=== PATIENT | female | born 1950 | race African-American/Black ===

== ENCOUNTER 2021-09-28 12:26 | Inpatient (IN) | payer OTHER ==
[2021-09-28] MEDS ORDERED: IBUPROFEN 600 MG TABLET (FP) PO ONE ×2 (13:46→13:47)
[2021-09-28 16:05] LABS: BASO % 0.6 % (0-2.0); EOS % 0.2 % (0-4.5); HEMATOCRIT 38.5 % (32.4-45.2); HEMOGLOBIN 12.3 GM/dL (10.7-15.3); LYMPH % 18.7 % (8-40); MCH 28.8 pg (25.7-33.7); MCHC 32.1 g/dl (32.0-36.0); MEAN CELL VOLUME 89.7 fl (80-96); MEAN PLT VOLUME 8.7 fl (7.5-11.1); MONO % 9.5 % (3.8-10.2); PLATELET COUNT 189 10^3/uL (134-434); RBC 4.29 M/mm3 (3.60-5.2); RDW 16.3 % (11.6-15.6); WHITE BLOOD COUNT 6.8 K/mm3 (4.0-10.0)
[2021-09-28 16:08] LABS: INR 1.32 (0.83-1.09); PROTHROMBIN TIME (PATIENT) 15.2 SEC (9.7-13.0)
[2021-09-28 16:10] LABS: ACTIVATED PTT 24.4 SECONDS (25.2-36.5)
[2021-09-28 16:14] LABS: CALCIUM 8.7 mg/dL (8.5-10.1)
[2021-09-28 16:15] LABS: ALBUMIN 3.3 g/dl (3.4-5.0); MAGNESIUM 1.7 mg/dL (1.8-2.4)
[2021-09-28 16:18] LABS: CREATININE 1.3 mg/dL (0.55-1.3)
[2021-09-28 16:20] LABS: BILIRUBIN,TOTAL 1.7 mg/dL (0.2-1); TOT PROT 7.2 g/dl (6.4-8.2)
[2021-09-28 16:38] LABS: EPI CELLS >36 /uL (0-25.1); HYALINE CASTS 3 /uL (0-3.1); PH,URINE 5.5 (5.0-8.0); URINE APPEARANCE CLOUDY; URINE BACTERIA 493 /uL (0-1359); URINE BILIRUBIN NEGATIVE (NEGATIVE); URINE COLOR DK YELLOW; URINE GLUCOSE (UA) NEGATIVE (NEGATIVE); URINE KETONE NEGATIVE (NEGATIVE); URINE LEUK ESTERASE NEGATIVE (NEGATIVE); URINE NITRITE NEGATIVE (NEGATIVE); URINE PROTEIN 3+ (NEGATIVE); URINE WBC 13 /uL (0-25.8)
[2021-09-28 18:05] LABS: URINE RBC 25.5 /uL (0-23.9)
[2021-09-28] MEDS ORDERED: FUROSEMIDE 40 MG/4 ML INJECTABLE VIAL IVPUSH ONE (20:22)
[2021-09-28] MEDS ORDERED: POTASSIUM CHLORIDE TABS 20 MEQ TABLET.ER (FP) PO ONE ×2 (21:02→21:44)
[2021-09-28] MEDS ORDERED: MAGNESIUM OXIDE 400 MG TABLET (FP) PO ONE (21:03)
[2021-09-28] MEDS ORDERED: NALOXONE HCL 0.4 MG/ML VIAL IVPUSH PRN (21:23)
[2021-09-28] MEDS ORDERED: MAGNESIUM OXIDE 400 MG TABLET (FP) ONE (21:45)
[2021-09-28] MEDS ORDERED: FUROSEMIDE 40 MG/4 ML INJECTABLE VIAL ONE (21:45)
[2021-09-28] MEDS ORDERED: ACETAMINOPHEN 500 MG TABLET (FP) ONE (21:47)
[2021-09-28] MEDS: ACETAMINOPHEN 500 MG TABLET (FP) PO PRN (21:57)
[2021-09-29 07:14] LABS: HEMATOCRIT 35.7 % (32.4-45.2); HEMOGLOBIN 11.4 GM/dL (10.7-15.3); MCH 28.5 pg (25.7-33.7); MCHC 31.9 g/dl (32.0-36.0); MEAN CELL VOLUME 89.4 fl (80-96); MEAN PLT VOLUME 9.3 fl (7.5-11.1); PLATELET COUNT 161 10^3/uL (134-434); RDW 16.1 % (11.6-15.6); WHITE BLOOD COUNT 4.3 K/mm3 (4.0-10.0)
[2021-09-29 07:39] LABS: BLOOD UREA NITROGEN 23.2 mg/dL (7-18); CALCIUM 8.2 mg/dL (8.5-10.1)
[2021-09-29 07:40] LABS: ALBUMIN 2.8 g/dl (3.4-5.0); MAGNESIUM 1.6 mg/dL (1.8-2.4)
[2021-09-29 07:41] LABS: CREATININE 1.3 mg/dL (0.55-1.3); PHOSPHOROUS 3.6 mg/dL (2.5-4.9)
[2021-09-29 07:42] LABS: BILIRUBIN,TOTAL 1.3 mg/dL (0.2-1); TOT PROT 6.2 g/dl (6.4-8.2)
[2021-09-29] MEDS ORDERED: MAGNESIUM SULF 50% (8.12 MEQ/2 ML-1 GM VIAL) IVPB ONE (07:43)
[2021-09-29] MEDS ORDERED: MAGNESIUM SULFATE IN WATER 2 GM/50 ML IVPB IVPB ONE (07:49)
[2021-09-29] MEDS: FUROSEMIDE 40 MG/4 ML INJECTABLE VIAL IVPUSH SCH (08:07)
[2021-09-29] MEDS ORDERED: ENOXAPARIN NA (PORCINE) 40 MG/0.4 ML DISP.SYRIN SQ ONE (09:32)
[2021-09-29] MEDS ORDERED: CARVEDILOL 12.5 MG TABLET (FP) ONE (09:32)
[2021-09-29] MEDS: ENOXAPARIN NA (PORCINE) 40 MG/0.4 ML DISP.SYRIN SQ SCH (09:38)
[2021-09-29] MEDS ORDERED: LISINOPRIL 5 MG TABLET PO SCH (10:00)
[2021-09-29] MEDS ORDERED: CARVEDILOL 12.5 MG TABLET (FP) PO SCH (10:00)
[2021-09-29] MEDS ORDERED: MAGNESIUM OXIDE 400 MG TABLET (FP) PO ONE (14:47)
[2021-09-29] MEDS ORDERED: MAGNESIUM OXIDE 400 MG TABLET (FP) ONE (15:45)
[2021-09-29] MEDS: ACETAMINOPHEN 500 MG TABLET (FP) PO PRN (15:49)
[2021-09-29 20:44] VITALS: BMI 32.5
[2021-09-29] MEDS ORDERED: SACUBITRIL/VALSARTAN 24 MG-26 MG TABLET PO SCH (22:00)
[2021-09-29] MEDS: SACUBITRIL/VALSARTAN 49 MG-51 MG TABLET PO SCH (22:08)
[2021-09-29] MEDS: CARVEDILOL 6.25 MG TABLET (FP) PO SCH (22:08)
[2021-09-30] MEDS: ACETAMINOPHEN 500 MG TABLET (FP) PO PRN ×2 (06:24→23:13)
[2021-09-30] MEDS: FUROSEMIDE 40 MG/4 ML INJECTABLE VIAL IVPUSH SCH (06:24)
[2021-09-30 07:05] LABS: HEMATOCRIT 34.1 % (32.4-45.2); MCH 28.7 pg (25.7-33.7); MCHC 32.2 g/dl (32.0-36.0); MEAN CELL VOLUME 89.1 fl (80-96); MEAN PLT VOLUME 9.1 fl (7.5-11.1); PLATELET COUNT 172 10^3/uL (134-434); RBC 3.83 M/mm3 (3.60-5.2); RDW 16.1 % (11.6-15.6); WHITE BLOOD COUNT 4.5 K/mm3 (4.0-10.0)
[2021-09-30 07:24] LABS: CALCIUM 8.3 mg/dL (8.5-10.1)
[2021-09-30 07:25] LABS: ALBUMIN 2.8 g/dl (3.4-5.0); BLOOD UREA NITROGEN 30.5 mg/dL (7-18)
[2021-09-30 07:28] LABS: CREATININE 1.3 mg/dL (0.55-1.3); PHOSPHOROUS 3.2 mg/dL (2.5-4.9)
[2021-09-30 07:30] LABS: TOT PROT 6.5 g/dl (6.4-8.2)
[2021-09-30] MEDS: SACUBITRIL/VALSARTAN 49 MG-51 MG TABLET PO SCH ×2 (09:53→21:24)
[2021-09-30] MEDS: ENOXAPARIN NA (PORCINE) 40 MG/0.4 ML DISP.SYRIN SQ SCH (09:53)
[2021-09-30] MEDS: POTASSIUM CHLORIDE TABS 20 MEQ TABLET.ER (FP) PO SCH (09:53)
[2021-09-30] MEDS: CARVEDILOL 6.25 MG TABLET (FP) PO SCH ×2 (09:53→21:24)
[2021-09-30] MEDS ORDERED: POTASSIUM CHLORIDE TABS 20 MEQ TABLET.ER (FP) PO ONE (15:00)
[2021-10-01] MEDS: FUROSEMIDE 40 MG/4 ML INJECTABLE VIAL IVPUSH SCH (06:10)
[2021-10-01 07:27] LABS: BLOOD UREA NITROGEN 27.9 mg/dL (7-18); CALCIUM 8.2 mg/dL (8.5-10.1)
[2021-10-01 07:28] LABS: MAGNESIUM 1.6 mg/dL (1.8-2.4)
[2021-10-01 07:30] LABS: CREATININE 1.2 mg/dL (0.55-1.3)
[2021-10-01] MEDS ORDERED: MAGNESIUM SULF 50% (8.12 MEQ/2 ML-1 GM VIAL) IVPB ONE (07:58)
[2021-10-01] MEDS: ENOXAPARIN NA (PORCINE) 40 MG/0.4 ML DISP.SYRIN SQ SCH (09:10)
[2021-10-01] MEDS: POTASSIUM CHLORIDE TABS 20 MEQ TABLET.ER (FP) PO SCH (09:10)
[2021-10-01] MEDS: SACUBITRIL/VALSARTAN 49 MG-51 MG TABLET PO SCH ×2 (09:10→22:19)
[2021-10-01] MEDS: CARVEDILOL 6.25 MG TABLET (FP) PO SCH ×2 (09:10→22:19)
[2021-10-01] MEDS: ACETAMINOPHEN 500 MG TABLET (FP) PO PRN (17:41)
[2021-10-02] MEDS: FUROSEMIDE 40 MG/4 ML INJECTABLE VIAL IVPUSH SCH (06:11)
[2021-10-02 07:51] LABS: BASO % 0.3 % (0-2.0); EOS % 1.4 % (0-4.5); HEMATOCRIT 33.9 % (32.4-45.2); HEMOGLOBIN 10.8 GM/dL (10.7-15.3); LYMPH % 42.6 % (8-40); MCH 28.5 pg (25.7-33.7); MCHC 31.8 g/dl (32.0-36.0); MEAN CELL VOLUME 89.4 fl (80-96); MEAN PLT VOLUME 8.9 fl (7.5-11.1); MONO % 15.4 % (3.8-10.2); NEUT % 40.3 % (42.8-82.8); PLATELET COUNT 177 10^3/uL (134-434); RBC 3.79 M/mm3 (3.60-5.2); WHITE BLOOD COUNT 4.8 K/mm3 (4.0-10.0)
[2021-10-02 08:11] LABS: ALBUMIN 2.6 g/dl (3.4-5.0)
[2021-10-02 08:12] LABS: BLOOD UREA NITROGEN 24.7 mg/dL (7-18)
[2021-10-02 08:14] LABS: CALCIUM 7.7 mg/dL (8.5-10.1); MAGNESIUM 1.6 mg/dL (1.8-2.4)
[2021-10-02 08:16] LABS: PHOSPHOROUS 2.6 mg/dL (2.5-4.9)
[2021-10-02 08:17] LABS: CREATININE 1.1 mg/dL (0.55-1.3)
[2021-10-02 08:18] LABS: TOT PROT 5.9 g/dl (6.4-8.2)
[2021-10-02] MEDS: SACUBITRIL/VALSARTAN 49 MG-51 MG TABLET PO SCH ×2 (09:23→22:42)
[2021-10-02] MEDS: POTASSIUM CHLORIDE TABS 20 MEQ TABLET.ER (FP) PO SCH (09:23)
[2021-10-02] MEDS: ENOXAPARIN NA (PORCINE) 40 MG/0.4 ML DISP.SYRIN SQ SCH (09:23)
[2021-10-02] MEDS: CARVEDILOL 6.25 MG TABLET (FP) PO SCH ×2 (09:23→22:37)
[2021-10-02] MEDS: ACETAMINOPHEN 500 MG TABLET (FP) PO PRN ×2 (09:24→22:37)
[2021-10-02] MEDS ORDERED: MAGNESIUM SULF 50% (8.12 MEQ/2 ML-1 GM VIAL) IVPB ONE (10:37)
[2021-10-03] MEDS: FUROSEMIDE 40 MG/4 ML INJECTABLE VIAL IVPUSH SCH (06:22)
[2021-10-03] MEDS: POTASSIUM CHLORIDE TABS 20 MEQ TABLET.ER (FP) PO SCH (09:46)
[2021-10-03] MEDS: CARVEDILOL 6.25 MG TABLET (FP) PO SCH ×2 (09:46→21:47)
[2021-10-03] MEDS: SACUBITRIL/VALSARTAN 49 MG-51 MG TABLET PO SCH ×2 (09:47→21:47)
[2021-10-03] MEDS: ENOXAPARIN NA (PORCINE) 40 MG/0.4 ML DISP.SYRIN SQ SCH (09:47)
[2021-10-03] MEDS: ACETAMINOPHEN 500 MG TABLET (FP) PO PRN ×2 (09:48→21:47)
[2021-10-03] MEDS ORDERED: MAGNESIUM 1GM/D5W 100ML - 100 ML IVPB IVPB ONE (13:45)
[2021-10-03 15:08] LABS: BASO % 0.4 % (0-2.0); EOS % 1.6 % (0-4.5); HEMATOCRIT 34.8 % (32.4-45.2); LYMPH % 36.2 % (8-40); MCH 28.3 pg (25.7-33.7); MCHC 31.7 g/dl (32.0-36.0); MEAN CELL VOLUME 89.5 fl (80-96); MONO % 9.1 % (3.8-10.2); NEUT % 52.7 % (42.8-82.8); PLATELET COUNT 206 10^3/uL (134-434); RBC 3.89 M/mm3 (3.60-5.2); RDW 15.6 % (11.6-15.6); WHITE BLOOD COUNT 5.6 K/mm3 (4.0-10.0)
[2021-10-03 15:26] LABS: INR 1.05 (0.83-1.09); PROTHROMBIN TIME (PATIENT) 12.1 SEC (9.7-13.0)
[2021-10-03 15:28] LABS: ACTIVATED PTT 34.9 SECONDS (25.2-36.5)
[2021-10-03 15:36] LABS: BLOOD UREA NITROGEN 19.6 mg/dL (7-18); CALCIUM 8.8 mg/dL (8.5-10.1); MAGNESIUM 2.3 mg/dL (1.8-2.4)
[2021-10-03 15:39] LABS: CREATININE 1.2 mg/dL (0.55-1.3); PHOSPHOROUS 2.7 mg/dL (2.5-4.9)
[2021-10-03 15:41] LABS: BILIRUBIN,TOTAL 0.9 mg/dL (0.2-1); TOT PROT 6.7 g/dl (6.4-8.2)
[2021-10-04] MEDS: FUROSEMIDE 40 MG/4 ML INJECTABLE VIAL IVPUSH SCH (06:26)
[2021-10-04 07:44] LABS: CALCIUM 8.4 mg/dL (8.5-10.1)
[2021-10-04 07:45] LABS: BLOOD UREA NITROGEN 19.5 mg/dL (7-18); MAGNESIUM 2.2 mg/dL (1.8-2.4)
[2021-10-04] MEDS: POTASSIUM CHLORIDE TABS 20 MEQ TABLET.ER (FP) PO SCH (11:18)
[2021-10-04] MEDS: CARVEDILOL 6.25 MG TABLET (FP) PO SCH ×2 (11:18→21:17)
[2021-10-04] MEDS: ENOXAPARIN NA (PORCINE) 40 MG/0.4 ML DISP.SYRIN SQ SCH (11:19)
[2021-10-04] MEDS: SACUBITRIL/VALSARTAN 49 MG-51 MG TABLET PO SCH ×2 (11:19→21:18)
[2021-10-04] MEDS: ACETAMINOPHEN 500 MG TABLET (FP) PO PRN ×2 (11:24→21:18)
[2021-10-05 06:13] VITALS: PULSE 78
[2021-10-05] MEDS: FUROSEMIDE 40 MG/4 ML INJECTABLE VIAL IVPUSH SCH (06:45)
[2021-10-05 08:01] LABS: BASO % 0.6 % (0-2.0); EOS % 2.2 % (0-4.5); HEMATOCRIT 34.5 % (32.4-45.2); LYMPH % 45.5 % (8-40); MCH 28.6 pg (25.7-33.7); MEAN CELL VOLUME 89.4 fl (80-96); MEAN PLT VOLUME 9.5 fl (7.5-11.1); MONO % 10.3 % (3.8-10.2); NEUT % 41.4 % (42.8-82.8); PLATELET COUNT 202 10^3/uL (134-434); RBC 3.86 M/mm3 (3.60-5.2); RDW 16.2 % (11.6-15.6); WHITE BLOOD COUNT 5.5 K/mm3 (4.0-10.0)
[2021-10-05 08:33] LABS: ALBUMIN 2.9 g/dl (3.4-5.0); CALCIUM 8.8 mg/dL (8.5-10.1)
[2021-10-05 08:34] LABS: BLOOD UREA NITROGEN 26.9 mg/dL (7-18); MAGNESIUM 2.2 mg/dL (1.8-2.4)
[2021-10-05 08:36] LABS: CREATININE 1.1 mg/dL (0.55-1.3); PHOSPHOROUS 3.8 mg/dL (2.5-4.9)
[2021-10-05 08:38] LABS: TOT PROT 6.6 g/dl (6.4-8.2)
[2021-10-05 08:41] LABS: BILIRUBIN,TOTAL 0.8 mg/dL (0.2-1)
[2021-10-05 09:27] VITALS: BP 155/75; TEMP 98.8
[2021-10-05] MEDS: SACUBITRIL/VALSARTAN 49 MG-51 MG TABLET PO SCH (09:29)
[2021-10-05] MEDS: POTASSIUM CHLORIDE TABS 20 MEQ TABLET.ER (FP) PO SCH (09:29)
[2021-10-05] MEDS: CARVEDILOL 6.25 MG TABLET (FP) PO SCH (09:29)
[2021-10-05] MEDS: ENOXAPARIN NA (PORCINE) 40 MG/0.4 ML DISP.SYRIN SQ SCH (09:29)
== END 2021-10-05 11:55 | disposition short-term general hospital (02) | DRG 291 ==
LOC: JERFT 12:26 → JER 12:26 → JERBED 20:52 → J4W 09-29 19:19
PROVIDERS: ADMIT Hospitalist; ATTEND Internal Medicine
DX: I13.0 Hypertensive heart and chronic kidney disease with heart failure and stage 1 through stage 4 chronic kidney disease, or unspecified chronic kidney disease (principal); I50.23 Acute on chronic systolic (congestive) heart failure; N17.9 Acute kidney failure, unspecified; I24.8 Other forms of acute ischemic heart disease; R18.8 Other ascites; M25.571 Pain in right ankle and joints of right foot; R91.8 Other nonspecific abnormal finding of lung field; E87.6 Hypokalemia; E83.42 Hypomagnesemia; I08.3 Combined rheumatic disorders of mitral, aortic and tricuspid valves; I27.20 Pulmonary hypertension, unspecified; N18.9 Chronic kidney disease, unspecified; I42.8 Other cardiomyopathies
CPT/HCPCS: 36415; 71046-TC-FY; 71275-TC; 73610-TC-RT-FY; 73630-TC-RT-FY; 80048; 80053; 80061; 81003; 82570; 83036; 83735; 83880; 84100; 84300; 84443; 84484; 85025; 85027; 85379; 85610; 85730; 93005; 93010; 93306-TC; 93970-TC; 97116-GP; 97161-GP; 99285-25; C9803-CS; Q9967; U0003; U0005

== ENCOUNTER 2022-05-17 04:09 | Day surgery (SDC) | payer OTHER ==
[2022-05-16 09:12] VITALS: BMI 24.0
[~2022-05-17 04:09] MED LIST: TOBRAMYCIN/DEXAMETHASONE OPHTH. OINTMENT 1 TUBE OS ONE
[2022-05-17] MEDS ORDERED: TOBRAMYCIN/DEXAMETHASONE OPHTH. OINTMENT 1 TUBE ONE (06:51)
[2022-05-17] MEDS ORDERED: POVIDONE-IODINE 5% OPHTHALMIC PREP 30 ML SOLUTION ONE (06:55)
[2022-05-17] MEDS ORDERED: TRYPAN BLUE 0.5 ML DISP.SYRIN ONE (06:55)
[2022-05-17] MEDS ORDERED: ACETAMINOPHEN 325 MG TABLET (FP) PO PRN (07:26)
[2022-05-17] MEDS ORDERED: KETOROLAC TROMETHAMINE 0.5% EYE DROP 1 DROP DROPS OP SCH (07:30)
[2022-05-17] MEDS ORDERED: TROPICAMIDE 1% OPHTH SOLN 15 ML BOTTLE ONE (08:08)
[2022-05-17] MEDS ORDERED: DICLOFENAC SODIUM 0.1% OPHTHALMIC 2.5ML BOTTLE ONE (08:08)
[2022-05-17] MEDS ORDERED: PHENYLEPHRINE 2.5% OPTHALMIC DROP 2ML BOTTLE ONE (08:23)
[2022-05-17] MEDS ORDERED: KETOROLAC TROMETHAMINE 0.5% EYE DROP 1 DROP DROPS ONE (08:25)
[2022-05-17] MEDS: CIPROFLOXACIN HCL 0.3% OPHTH 2.5ML BOTTLE OP SCH ×3 (08:40→09:10)
[2022-05-17] MEDS: PHENYLEPHRINE 2.5% OPHTH SOLN 15 ML BOTTLE OP SCH ×3 (08:40→08:50)
[2022-05-17] MEDS: TROPICAMIDE 1% OPHTH SOLN 15 ML BOTTLE OP SCH ×2 (08:40→08:45)
[2022-05-17 08:47] VITALS: RESP 18
[2022-05-17] MEDS ORDERED: LIDOCAINE HCL/PF 2% SDV 5ML VIAL ONE (09:38)
[2022-05-17] MEDS ORDERED: MIDAZOLAM HCL 2 MG/2 ML SINGLE DOSE VIAL ONE (09:41)
[2022-05-17] MEDS ORDERED: PROPOFOL 20 ML ONE (09:41)
[2022-05-17] MEDS ORDERED: BUPIVACAINE HCL/PF 0.75% 10 ML VIAL PNB ONE (09:56)
[2022-05-17] MEDS ORDERED: LIDOCAINE HCL/PF 2% SDV 5ML VIAL PNB ONE (09:56)
[2022-05-17] MEDS ORDERED: POVIDONE-IODINE 5% OPHTHALMIC PREP 30 ML SOLUTION OS ONE (10:03)
[2022-05-17] MEDS ORDERED: BSS (NA/CA/MG/K) BALANCED SALT SOLUTION OPHTH SOLN 15 ML BOTTLE OS ONE (10:04)
[2022-05-17] MEDS ORDERED: TETRACAINE 0.5% OPHTH SOLN 2 ML BOTTLE OS ONE (10:05)
[2022-05-17] MEDS ORDERED: TRYPAN BLUE 0.5 ML DISP.SYRIN IO ONE (10:06)
[2022-05-17] MEDS ORDERED: CHONDROITIN SU A/HYALUR SOD 1 KIT IO ONE (10:07)
[2022-05-17] MEDS ORDERED: EPINEPHrine/PF 1 MG/1 ML (1:1,000) AMPULE SQ ONE (10:08)
[2022-05-17 11:35] VITALS: BP 111/69; PULSE 75; TEMP 97.9
== END 2022-05-17 11:25 | disposition home or self-care (01) ==
LOC: JASU-SURG 04:09
PROVIDERS: ATTEND Ophthalmology
PROC: 08RK3JZ Replacement of Left Lens with Synthetic Substitute, Percutaneous Approach (ICD-10-PCS; principal; 2022-05-17 10:30)
DX: H26.9 Unspecified cataract (principal)

== ENCOUNTER 2022-05-24 04:08 | Day surgery (SDC) | payer OTHER ==
[2022-05-21 11:31] VITALS: BMI 24.0
[2022-05-24] MEDS ORDERED: KETOROLAC TROMETHAMINE 0.5% EYE DROP 1 DROP DROPS ONE (06:29)
[2022-05-24] MEDS ORDERED: CIPROFLOXACIN HCL 0.3% OPHTH 2.5ML BOTTLE ONE (06:30)
[2022-05-24] MEDS ORDERED: PHENYLEPHRINE 2.5% OPTHALMIC DROP 2ML BOTTLE ONE (06:30)
[2022-05-24] MEDS ORDERED: TROPICAMIDE 1% OPHTH SOLN 15 ML BOTTLE ONE (06:30)
[2022-05-24] MEDS ORDERED: EPINEPHrine/PF 1 MG/1 ML (1:1,000) AMPULE ONE (06:44)
[2022-05-24 06:46] VITALS: RESP 18
[2022-05-24] MEDS ORDERED: CIPROFLOXACIN HCL 0.3% OPHTH 2.5ML BOTTLE OD ONE ×2 (06:50→07:00)
[2022-05-24] MEDS ORDERED: PHENYLEPHRINE 2.5% OPHTH SOLN 15 ML BOTTLE OD ONE ×3 (06:50→07:00)
[2022-05-24] MEDS ORDERED: TROPICAMIDE 1% OPHTH SOLN 15 ML BOTTLE OD ONE ×3 (06:50→07:00)
[2022-05-24] MEDS ORDERED: KETOROLAC TROMETHAMINE 0.5% EYE DROP 1 DROP DROPS OD ONE ×3 (06:50→07:00)
[2022-05-24] MEDS ORDERED: CIPROFLOXACIN 0.3% EYE DROPS 5 ML BOTTLE OD ONE (06:55)
[2022-05-24] MEDS ORDERED: MIDAZOLAM HCL 2 MG/2 ML SINGLE DOSE VIAL ONE (07:21)
[2022-05-24] MEDS ORDERED: ACETAMINOPHEN 325 MG TABLET (FP) PO PRN (07:25)
[2022-05-24] MEDS ORDERED: KETOROLAC TROMETHAMINE 0.5% EYE DROP 1 DROP DROPS OP SCH (07:30)
[2022-05-24] MEDS ORDERED: TROPICAMIDE 1% OPHTH SOLN 15 ML BOTTLE OP SCH (07:30)
[2022-05-24] MEDS ORDERED: PHENYLEPHRINE 2.5% OPHTH SOLN 15 ML BOTTLE OP SCH (07:30)
[2022-05-24] MEDS ORDERED: CIPROFLOXACIN HCL 0.3% OPHTH 2.5ML BOTTLE OP SCH (07:30)
[2022-05-24] MEDS ORDERED: PROPOFOL 20 ML ONE (07:33)
[2022-05-24] MEDS ORDERED: LIDOCAINE HCL 2% 100 MG/5 ML DISP.SYRIN NR ONE (07:42)
[2022-05-24] MEDS ORDERED: BUPIVACAINE HCL/PF 0.75% 10 ML VIAL RB ONE (07:42)
[2022-05-24] MEDS ORDERED: TETRACAINE 0.5% HCL 0.6ML DROPPER.BOTTLE OD ONE (07:44)
[2022-05-24] MEDS ORDERED: POVIDONE-IODINE 5% OPHTHALMIC PREP 30 ML SOLUTION OD ONE (07:45)
[2022-05-24] MEDS ORDERED: BSS (NA/CA/MG/K) BALANCED SALT SOLUTION OPHTH SOLN 15 ML BOTTLE IO ONE (07:51)
[2022-05-24] MEDS ORDERED: LIDOCAINE HCL 1% PRESERVATIVE FREE - 30ML VIAL IO ONE (07:52)
[2022-05-24] MEDS ORDERED: TRYPAN BLUE 0.5 ML DISP.SYRIN IO ONE (07:53)
[2022-05-24] MEDS ORDERED: CHONDROITIN SU A/HYALUR SOD 1 KIT IO ONE ×2 (07:55)
[2022-05-24] MEDS ORDERED: EPINEPHrine/PF 1 MG/1 ML (1:1,000) AMPULE SQ ONE (07:59)
[2022-05-24] MEDS ORDERED: ONDANSETRON 4 MG/2 ML VIAL ONE (08:26)
[2022-05-24] MEDS ORDERED: TOBRAMYCIN/DEXAMETHASONE OPHTH. OINTMENT 1 TUBE OD ONE (08:31)
[2022-05-24 10:39] VITALS: BP 108/62; PULSE 73; TEMP 98.2
== END 2022-05-24 10:00 | disposition home or self-care (01) ==
LOC: JASU-SURG 04:08
PROVIDERS: ATTEND Ophthalmology
PROC: 08RJ3JZ Replacement of Right Lens with Synthetic Substitute, Percutaneous Approach (ICD-10-PCS; principal; 2022-05-24 07:30)
DX: H26.8 Other specified cataract (principal)